=== PATIENT | male | born 1985 | race Caucasian/White ===

== ENCOUNTER 2022-05-20 16:45 | Emergency (ER) | payer OTHER ==
[~2022-05-20] VITALS: Ht 188 cm; Wt 102.1 kg
--- NOTE | 2022-05-20 17:00 | NUR ---
BIBS W/ C/O LACERATION ON RIGHT HAND, SUSTAINED WHILE WORKING IN AN ATTIC. TO ER BED 10.
[2022-05-20] MEDS ORDERED: LIDOCAINE HCL/PF 1% 30 ML VIAL TP ONE (18:30)
[2022-05-20] MEDS ORDERED: LIDOCAINE 1% INJ 50 ML MDV IJ ONE (19:00)
--- NOTE | 2022-05-20 19:06 | NUR ---
LAC TRAY AND PROLENE 5-0 AT BEDSIDE.
--- NOTE | 2022-05-20 19:35 | NUR ---
HAND OFF DAKOTAH MURPHY
--- NOTE | 2022-05-20 19:41 | NUR ---
AT BEDSIDE FOR LAC REPAIR
[2022-05-20] MEDS ORDERED: IBUP-1955 PO (20:03)
[2022-05-20] MEDS ORDERED: CEPH500T PO (20:03)
[2022-05-20] MEDS ORDERED: TDAP [DIPH/PERTUSSIS/TET] 0.5 ML VIAL IM ONE ×2 (20:12→20:30)
[2022-05-20] MEDS ORDERED: IBUPROFEN 600 MG TABLET ONE (20:12)
--- NOTE | 2022-05-20 20:21 | NUR ---
PT OK TO DISCHARGE PER [employer]PATCH[employer]. Patient discharged to home in stable condition. Written and verbal after care instructions given. Patient verbalizes understanding of instruction.Patient is awake and alert to self, day, and place. PT ambulatory with a steady gait
[2022-05-20 20:28] VITALS: BP 128/70
[2022-05-20] MEDS ORDERED: IBUPROFEN 600 MG TABLET PO ONE (20:30)
== END 2022-05-20 20:28 | disposition home or self-care (01) ==
LOC: ER 16:48
DX: S61.411A Laceration without foreign body of right hand, initial encounter (principal); Z60.2 Problems related to living alone; Z79.899 Other long term (current) drug therapy; W26.8XXA Contact with other sharp object(s), not elsewhere classified, initial encounter; Y93.89 Activity, other specified; Y92.89 Other specified places as the place of occurrence of the external cause; Y99.8 Other external cause status
CPT/HCPCS: 99283; 12002; 90471; 90715; 73130; J3490 ×2; A6403